=== PATIENT | male | born 1985 | race Caucasian/White ===

== ENCOUNTER 2023-11-22 18:23 | Emergency (ER) | payer OTHER ==
[2023-11-22 18:39] VITALS: BP 143/71; PULSE 53; RESP 16; TEMP 98; BMI 28.3
[2023-11-22] MEDS ORDERED: KETOROLAC TROMETHAMINE 30 MG/1 ML VIAL ONE (19:11)
[2023-11-22] MEDS: KETOROLAC TROMETHAMINE 30 MG/1 ML VIAL IM ONE (19:15)
[2023-11-22] MEDS ORDERED: LIDOCAINE 4% PATCH TP ONE (20:13)
[2023-11-22] MEDS: LIDOCAINE 4% PATCH TP ONE (20:19)
[2023-11-22] MEDS ORDERED: LIDOCAINE PATCH REMOVAL MC SCH (22:00)
== END 2023-11-22 20:20 | disposition home or self-care (01) ==
LOC: JER 18:23 → JERFT 18:23
PROC: 3E0233Z Introduction of Anti-inflammatory into Muscle, Percutaneous Approach (ICD-10-PCS; principal; 2023-11-22)
DX: M54.42 Lumbago with sciatica, left side (principal)
CPT/HCPCS: 72100-TC-FY; 99284-25